=== PATIENT | female | born 1960 | race Two or more races ===

== ENCOUNTER 2018-04-30 00:34 | Inpatient (IN) | payer OTHER ==
[2018-04-30] MEDS ORDERED: morphine CARPU-JECT 10 MG/1 ML DISP.SYRIN IVPUSH ONE ×3 (00:40→05:09)
[2018-04-30] MEDS ORDERED: SODIUM CHLORIDE 0.9% 500 ML INFUS.BAG IV ONE (00:40)
[2018-04-30] MEDS ORDERED: ONDANSETRON 4 MG/2 ML VIAL IVPUSH ONE (00:41)
--- NOTE | 2018-04-30 00:41 | PDOC ---
History of Present Illness - General Chief Complaint: Nausea/Vomiting Stated Complaint: VOMITING AND BACK PAIN History Source: Patient, Family - History of Present Illness Initial Comments: 04/30/18 05:34 back and abd pain x 2 days Timing/Duration: other (2 days) Severity: severe Modifying Factors: improves with: eating, rest Associated Symptoms: reports: nausea/vomiting. denies: fever/chills, rash Past History - Past Medical History Allergies/Adverse Reactions: Allergies Allergy/AdvReac Type Severity Reaction Status Date / Time No Known Allergies Allergy Verified 04/30/18 00:35 Home Medications: Ambulatory Orders Ondansetron [Zofran Odt -] 4 mg SL Q4H PRN 04/30/18 Comment:: 04/30/18 05:35 denies Review of Systems - Review of Systems All Other Systems: Reviewed and Negative *Physical Exam - Physical Exam General Appearance: Yes: Mild Distress HEENT: negative: Scleral Icterus (R), Scleral Icterus (L) Neck: positive: Supple. negative: Lymphadenopathy (R) Respiratory/Chest: positive: Lungs Clear Cardiovascular: positive: Regular Rhythm Gastrointestinal/Abdominal: positive: Tender. negative: Distended Lymphatic: negative: Adenopathy Musculoskeletal: positive: Normal Inspection Extremity: positive: Normal Capillary Refill Integumentary: positive: Normal Color Neurologic: positive: Fully Oriented ED Treatment Course - LABORATORY CBC & Chemistry Diagram: 04/30/18 01:09 04/30/18 01:09 Medical Decision Making - Medical Decision Making 04/30/18 05:36 gallstone pancreatitis low risk by Martita D/lia Gregg of general surgery--admit with supportive mgmt fluids IV morphine antiemetics *DC/Admit/Observation/Transfer Diagnosis at time of Disposition: Acute gallstone pancreatitis - Discharge Dispostion Condition at time of disposition: Good Decision to Admit order: Yes - Referrals - Patient Instructions - Post Discharge Activity
[2018-04-30] MEDS ORDERED: morphine CARPU-JECT 10 MG/1 ML DISP.SYRIN ONE ×3 (00:47→05:23)
[2018-04-30] MEDS ORDERED: ONDANSETRON 4 MG/2 ML VIAL ONE (01:02)
[2018-04-30 02:33] LABS: BASO % 0.1 % (0-2.0); EOS % 0.3 % (0-4.5); HEMATOCRIT 36.8 % (32.4-45.2); HEMOGLOBIN 12.4 GM/dL (10.7-15.3); LYMPH % 8.2 % (8-40); MCH 28.1 pg (25.7-33.7); MCHC 33.8 g/dl (32.0-36.0); MEAN PLT VOLUME 9.1 fl (7.5-11.1); MONO % 4.9 % (3.8-10.2); NEUT % 86.5 % (42.8-82.8); PLATELET COUNT 275 K/MM3 (134-434); RBC 4.43 M/mm3 (3.60-5.2); RDW 13.2 % (11.6-15.6); WHITE BLOOD COUNT 12.9 K/mm3 (4.0-10.0)
[2018-04-30 02:43] LABS: URINE APPEARANCE CLEAR; URINE BILIRUBIN NEGATIVE (<2.0 mg/dL); URINE BLOOD NEGATIVE (NEGATIVE); URINE COLOR YELLOW; URINE GLUCOSE (UA) NEGATIVE (NEGATIVE); URINE KETONE NEGATIVE (NEGATIVE); URINE LEUK ESTERASE NEGATIVE (NEGATIVE); URINE NITRITE NEGATIVE (NEGATIVE); URINE PROTEIN NEGATIVE (NEGATIVE); URINE UROBILINOGEN NORMAL mg/dL (0.2-1.0)
[2018-04-30 03:04] LABS: ALK PHOS 92 U/L (45-117); ANION GAP 11 (8-16); BILIRUBIN,TOTAL 0.5 mg/dL (0.2-1.0); BLOOD UREA NITROGEN 7 mg/dL (7-18); CALCIUM 9.1 mg/dL (8.5-10.1); CHLORIDE 100 mmol/L (98-107); CO2 28 mmol/L (21-32); CREATININE 0.6 mg/dL (0.55-1.02); GLUCOSE,RANDOM 135 mg/dL (74-106); POTASSIUM 3.3 mmol/L (3.5-5.1); SGOT/AST 57 U/L (15-37); SGPT/ALT 33 U/L (12-78); SODIUM 139 mmol/L (136-145); TOT PROT 7.9 g/dl (6.4-8.2)
[2018-04-30 03:06] LABS: LIPASE 1193 U/L (73-393)
[2018-04-30] MEDS ORDERED: ONDANSETRON 4 MG/2 ML VIAL IVPUSH PRN ×2 (05:41→08:14)
[2018-04-30] MEDS ORDERED: SODIUM CHLORIDE 1,000 ML IV SCH (05:45)
--- NOTE | 2018-04-30 08:07 | CONSULT ---
- Consultation REQUESTING PROVIDER: Dyllan ARNDT CONSULT REQUEST: We have been asked to surgically evaluate this patient for ( specify). PCP:Jann Castro NP HISTORY OF PRESENT ILLNESS: 57 y/o female presented w/n/v/and abdominal pain which started # days ago while traveling in [place]; there was some relief and then on return home started again; pain is sharp and unrelenting in the epigastrium/RUQ and radiation to the back; she denies dark urine/light stools; pain is relieved w/morphine in the ED PMHx:none PSHx: none Home Medications Medication Instructions Recorded Ondansetron [Zofran Odt -] 4 mg SL Q4H PRN 04/30/18 Allergies Allergy/AdvReac Type Severity Reaction Status Date / Time No Known Allergies Allergy Verified 04/30/18 00:35 REVIEW OF SYSTEMS: CONSTITUTIONAL: Absent: fever, chills, diaphoresis, generalized weakness, malaise, loss of appetite, weight change CARDIOVASCULAR: Absent: chest pain, syncope, palpitations, irregular heart rate, lightheadedness , peripheral edema RESPIRATORY: Absent: cough, shortness of breath, dyspnea with exertion, wheezing, stridor, hemoptysis GASTROINTESTINAL: Absent: abdominal pain, abdominal distension, nausea, vomiting, diarrhea, constipation, melena, hematochezia GENITOURINARY: Absent: dysuria, frequency, urgency, hesitancy, hematuria, flank pain, genital pain MUSCULOSKELETAL: Absent: myalgia, arthralgia, joint swelling, back pain, neck pain SKIN: Absent: rash, itching, pallor HEMATOLOGIC/IMMUNOLOGIC: Absent: easy bleeding, easy bruising, lymphadenopathy NEUROLOGIC: Absent: headache, focal weakness, paresthesias, dizziness, unsteady gait, seizure, mental status changes, bladder or bowel incontinence PSYCHIATRIC: Absent: anxiety, depression, suicidal or homicidal ideation, hallucinations. PHYSICAL EXAM: GENERAL: Awake, alert, and fully oriented, in slight acute distress. HEAD: Normal with no signs of trauma. EYES: sclera anicteric, conjunctiva clear. NECK: Normal ROM, supple without lymphadenopathy, JVD, or masses. ABDOMEN: Soft, tender in epigastriun and RUQ; +/- Rye sign, not distended, no guarding, no rebound, no masses. No organomegaly. No hernias MUSCULOSKELETAL: Normal ROM at all joints. No bony deformities or tenderness. No CVA tenderness. UPPER EXTREMITIES: 2+ pulses, warm, well-perfused. No cyanosis. Cap refill <2 seconds. No peripheral edema. LOWER EXTREMITIES: 2+ pulses, warm, well-perfused. No calf tenderness. No peripheral edema. NEUROLOGICAL: Normal speech, gait not observed. PSYCH: Cooperative. Good eye contact. Appropriate mood and affect. SKIN: Warm, dry, normal turgor, no rashes or lesions noted. Vital Signs Temperature 98.5 F 04/30/18 00:37 Pulse Rate 84 04/30/18 06:02 Respiratory Rate 18 04/30/18 06:02 Blood Pressure 145/78 04/30/18 05:58 O2 Sat by Pulse Oximetry (%) 99 04/30/18 06:02 Lab Results WBC 12.9 K/mm3 (4.0-10.0) H 04/30/18 01:09 RBC 4.43 M/mm3 (3.60-5.2) 04/30/18 01:09 Hgb 12.4 GM/dL (10.7-15.3) 04/30/18 01:09 Hct 36.8 % (32.4-45.2) 04/30/18 01:09 MCV 83.0 fl (80-96) 04/30/18 01:09 MCHC 33.8 g/dl (32.0-36.0) 04/30/18 01:09 RDW 13.2 % (11.6-15.6) 04/30/18 01:09 Plt Count 275 K/MM3 (134-434) 04/30/18 01:09 Sodium 139 mmol/L (136-145) 04/30/18 01:09 Potassium 3.3 mmol/L (3.5-5.1) L 04/30/18 01:09 Chloride 100 mmol/L (98-107) 04/30/18 01:09 Carbon Dioxide 28 mmol/L (21-32) 04/30/18 01:09 Anion Gap 11 (8-16) 04/30/18 01:09 BUN 7 mg/dL (7-18) 04/30/18 01:09 Creatinine 0.6 mg/dL (0.55-1.02) 04/30/18 01:09 Random Glucose 135 mg/dL (74-106) H 04/30/18 01:09 Calcium 9.1 mg/dL (8.5-10.1) 04/30/18 01:09 CT a/p-acute cholelithiasis; cholecystitis lipase elevated; amylase 116 IMP: acute cholecystitis/cholelithiasis; ? mild pancreatitis ? PLAN: NPO/IVF/IVABS; trend amylase/lipase; will need lap arjun; d/w patient and her daughter Nina this morning Jairo Gregg MD FACS
--- NOTE | 2018-04-30 08:25 | HP ---
CHIEF COMPLAINT: abdominal pain/ nausea/vomiting for 2 days PCP: HISTORY OF PRESENT ILLNESS: Patient is a 57 year old female with a past medical history of hypertension. She presents to the ED for abdominal pain, nausea, vomiting for two days. Patient is unable to hold down any food secondary to nausea, vomiting and abdominal pain. Vomiting is non bloody, non bilious. Abdominal pain began while she was traveling, then eventually worsened when she returned home prompting and ED visit. The pain is sharp and persistent and in the epigastric/ RUQ region. She denies any chest pain or shortness of breath No recent sick contacts or new foods. Her abdomen is mildly distended and tender to touch. Her lipase on admission was elevated at 1193, amylase 116. She was made NPO and started on IVF and antibiotics. A surgical consult was placed. CT abdomen shows distended gallbladder with thickened wall and large calculus. The possibility of acute cholecystitis cannot be excluded. Diffuse fatty infiltration of the liver with no additional evidence of acute pathology within the abdomen or pelvis. ER course was notable for: (1) CT shows possible acute choleysitis (2) lipase/amylase elevated (3) negative troponin Recent Travel: PAST MEDICAL HISTORY: PAST SURGICAL HISTORY: Social History: Smoking: Alcohol: Drugs: Family History: Allergies No Known Allergies Allergy (Verified 04/30/18 00:35) HOME MEDICATIONS: Home Medications Medication Instructions Recorded Ondansetron [Zofran Odt -] 4 mg SL Q4H PRN 04/30/18 PHYSICAL EXAMINATION Vital Signs - 24 hr 04/30/18 04/30/18 04/30/18 00:37 05:58 06:02 Temperature 98.5 F Pulse Rate 72 84 Pulse Rate [ 72 Left Radial] Respiratory 18 18 18 Rate Blood Pressure 168/82 Blood Pressure 145/78 [Left Arm] O2 Sat by Pulse 100 99 99 Oximetry (%) GENERAL: Awake, alert, and fully oriented, in no acute distress. HEAD: Normal with no signs of trauma. EYES: Pupils equal, round and reactive to light, extraocular movements intact, sclera anicteric, conjunctiva clear. No lid lag. EARS, NOSE, THROAT: Ears normal, nares patent, oropharynx clear without exudates. Moist mucous membranes. NECK: Normal range of motion, supple without lymphadenopathy, JVD, or masses. LUNGS: Breath sounds equal, clear to auscultation bilaterally. No wheezes, and no crackles. No accessory muscle use. HEART: Regular rate and rhythm, normal S1 and S2 without murmur, rub or gallop. ABDOMEN: soft, mildly distended, tender to touch, + bowel sounds MUSCULOSKELETAL: Normal range of motion at all joints. No bony deformities or tenderness. No CVA tenderness. UPPER EXTREMITIES: 2+ pulses, warm, well-perfused. No cyanosis. No clubbing. No peripheral edema. LOWER EXTREMITIES: 2+ pulses, warm, well-perfused. No calf tenderness. No peripheral edema. NEUROLOGICAL: Cranial nerves II-XII intact. Normal speech. Normal gait. PSYCHIATRIC: Cooperative. Good eye contact. Appropriate mood and affect. 04/30/18 04/30/18 04/30/18 01:00 01:09 01:09 WBC 12.9 H RBC 4.43 Hgb 12.4 Hct 36.8 MCV 83.0 MCH 28.1 MCHC 33.8 RDW 13.2 Plt Count 275 MPV 9.1 Neutrophils % 86.5 H Lymphocytes % 8.2 Monocytes % 4.9 Eosinophils % 0.3 Basophils % 0.1 Nucleated RBC % 0 Sodium 139 Potassium 3.3 L Chloride 100 Carbon Dioxide 28 Anion Gap 11 BUN 7 Creatinine 0.6 Creat Clearance w eGFR > 60 Random Glucose 135 H Calcium 9.1 Total Bilirubin 0.5 AST 57 H ALT 33 Alkaline Phosphatase 92 Troponin I < 0.02 Total Protein 7.9 Albumin 4.0 Total Amylase Lipase 1193 H Urine Color Urine Appearance Urine pH Ur Specific [place] Urine Protein Urine Glucose (UA) Urine Ketones Urine Blood Urine Nitrite Urine Bilirubin Urine Urobilinogen Ur Leukocyte Esterase 04/30/18 04/30/18 04/30/18 01:09 01:28 01:35 WBC RBC Hgb Hct MCV MCH MCHC RDW Plt Count MPV Neutrophils % Lymphocytes % Monocytes % Eosinophils % Basophils % Nucleated RBC % Sodium Potassium Chloride Carbon Dioxide Anion Gap BUN Creatinine Creat Clearance w eGFR Random Glucose Calcium Total Bilirubin AST ALT Alkaline Phosphatase Troponin I Cancelled Total Protein Albumin Total Amylase 116 H Lipase Urine Color Yellow Urine Appearance Clear Urine pH 6.0 Ur Specific [place] 1.024 Urine Protein Negative Urine Glucose (UA) Negative Urine Ketones Negative Urine Blood Negative Urine Nitrite Negative Urine Bilirubin Negative Urine Urobilinogen Normal Ur Leukocyte Esterase Negative ASSESSMENT/PLAN: Patient is a 57 year old female with a past medical history of hypertension. She presents to the ED for abdominal pain, nausea, vomiting for two days. Patient is unable to hold down any food secondary to nausea, vomiting and abdominal pain. Vomiting is non bloody, non bilious. Abdominal pain began while she was traveling, then eventually worsened when she returned home prompting and ED visit. The pain is sharp and persistent and in the epigastric/ RUQ region. She denies any chest pain or shortness of breath No recent sick contacts or new foods. Her abdomen is mildly distended and tender to touch. Her lipase on admission was elevated at 1193, amylase 116. She was made NPO and started on IVF and antibiotics. A surgical consult was placed. Imaging: abd/ct: abdomen shows distended gallbladder with thickened wall and large calculus. The possibility of acute cholecystitis cannot be excluded. Diffuse fatty infitration of the liver with no additional evidence of acute pathology within the abdomen or pelvis. GI: Abdominal Pain/Nausea/Vomiting Acute cholecystitis Pancreatitis NPO ID consulted for antibiotics D5 NS 20meq Pain management with morphine Protonix 40mg pushes Zofran prn Possible surgery on Wednesday Card; Hypertension Not on home meds F.E.N. Fluids: D5 NS 10meq @ 100 Electro: monitor Nutrition: NPO Prophy: DVT: SCDs GI: Protonix Disposition: full code Visit type - Emergency Visit Emergency Visit: Yes ED Registration Date: 04/30/18 Care time: The patient presented to the Emergency Department on the above date and was hospitalized for further evaluation of their emergent condition. - New Patient This patient is new to me today: Yes Date on this admission: 04/30/18 - Critical Care Critical Care patient: No Hospitalist Screening - Colonoscopy Questionnaire Colonoscopy Questionnaire: Colonoscopy Questionnaire - Patient: 50 - 75 years old and never had a screening colonoscopy: Unknown History of colon or rectal polyps, or CA: Unknown History of IBD, Crohn's disease or UC: Unknown History of abdominal radiation therapy as a child: Unknown - Relative: 1 with colon or rectal CA, or polyps at age 60 or younger: Unknown Colon or rectal CA diagnosed at age 45 or younger: Unknown Multiple relatives with colon or rectal CA: Unknown - Outcome: Screening Result: Negative Screen
[2018-04-30] MEDS: PANTOPRAZOLE SODIUM 40 MG VIAL IVPUSH SCH (09:53)
[2018-04-30] MEDS ORDERED: PIPERACILLIN/TAZOB 3.375 GM 3.375 GM in DEXTROSE 5%-WATER - 50 ML IVPB SCH (10:00)
[2018-04-30] MEDS: PIPERACILLIN/TAZOB 3.375 GM 3.375 GM in DEXTROSE 5%-WATER - 50 ML IVPB SCH ×2 (10:00→17:46)
--- NOTE | 2018-04-30 10:02 | PN ---
Progress Note (short form) - Note Progress Note: ID Consult dictated Acute cholecystitis Gallstone pancreatitis R/O biliary sepsis Pending c/s empiric Zosyn
--- NOTE | 2018-04-30 10:37 | CONS ---
DATE OF CONSULTATION: DATE OF DICTATION: 04/30/2018 INFECTIOUS DISEASE CONSULTATION HISTORY OF PRESENT ILLNESS: The patient is a 57-year-old female who was evaluated for acute cholecystitis. The patient developed right upper quadrant abdominal pain associated with nausea and vomiting approximately 2 days prior to admission. She described the pain as sharp, localized to the right lower quadrant and radiating to the back. She presented to the hospital, where a CAT scan revealed cholelithiasis, gallbladder thickening consistent with acute cholecystitis. She was empirically treated with Zosyn. At the present time she continues to complain of right upper quadrant abdominal pain as well as nausea. She was seen in consultation by Surgery. PAST MEDICAL HISTORY: As above. ALLERGIES: No known allergies. LABORATORY DATA: White count 12.9, hematocrit 36.8, platelet count 275. BUN 7, creatinine 0.6, amylase 116, lipase 1193. Cultures are pending. PHYSICAL EXAMINATION: General: She is awake, alert, supine in bed, obese female in no acute distress. Vital Signs: Temperature 98.5, blood pressure 168/82, pulse 72 and regular, respirations 18 per minute. HEENT: Sclerae mildly icteric. Cardiac: Heart sounds S1, S2. Lungs: Diminished breath sounds at the bases. Abdomen: Soft. Right upper quadrant tenderness to palpation. No rebound or rigidity. Extremities: Positive for edema. IMPRESSION: 1. Acute cholecystitis. 2. Gallstone pancreatitis. 3. Rule out biliary sepsis. PLAN: Await blood cultures. Empiric antibiotic coverage with Zosyn 3.375 gm IV piggyback every 8 hours, IV fluid hydration, analgesics, surgical followup. Thank you for the kind referral. GABRIELE HOUGH M.D. [id number]
[2018-04-30] MEDS ORDERED: morphine SULFATE 4 MG/ML VIAL ONE ×2 (13:31→17:42)
[2018-04-30] MEDS: morphine CARPU-JECT 4 MG/1 ML DISP.SYRIN IVPUSH PRN ×2 (13:58→17:45)
[2018-04-30] MEDS: morphine CARPU-JECT 2 MG/1 ML DISP.SYRIN IVPUSH PRN (21:53)
[2018-04-30] MEDS ORDERED: KCL 10 MEQ IVPB 10 MEQ/100 ML INFUS.BAG IVPB SCH (22:15)
[2018-04-30] MEDS: POTASSIUM CHLORIDE 10 MEQ in DEXTROSE 5%-NORMAL SALINE 1,000 ML IVPB SCH (22:30)
[2018-05-01] MEDS: PIPERACILLIN/TAZOB 3.375 GM 3.375 GM in DEXTROSE 5%-WATER - 50 ML IVPB SCH ×3 (01:37→17:19)
[2018-05-01] MEDS: POTASSIUM CHLORIDE 10 MEQ in DEXTROSE 5%-NORMAL SALINE 1,000 ML IVPB SCH (02:30)
[2018-05-01] MEDS: morphine CARPU-JECT 2 MG/1 ML DISP.SYRIN IVPUSH PRN (05:14)
--- NOTE | 2018-05-01 09:09 | PN ---
Progress Note (short form) - Note Progress Note: Attending Surgeon Feels better VSS AF abdo-soft and less tender labs pending IMP: cholecystitis/cholelithiasis PLAN: Continue present tx. xfer to [facility] for possible lap arjun possible open pending normalization of amylase/lipase; patient; family and staff are aware. Jairo Gregg MD FACS
[2018-05-01 09:36] LABS: ALK PHOS 66 U/L (32-92); ANION GAP 9 (8-16); BILIRUBIN,TOTAL 0.9 mg/dl (0.2-1.0); BLOOD UREA NITROGEN 6 mg/dl (7-18); CALCIUM 8.3 mg/dl (8.4-10.2); CHLORIDE 100 mmol/L (98-107); CO2 26 mmol/L (22-28); CREATININE 0.6 mg/dl (0.6-1.3); GLUCOSE,RANDOM 114 mg/dl (74-106); MAGNESIUM 1.7 mg/dL (1.8-2.4); SGOT/AST 47 U/L (10-42); SGPT/ALT 22 U/L (10-40); SODIUM 135 mmol/L (136-145)
[2018-05-01 09:41] LABS: RDW 12.4 % (11.6-15.6)
[2018-05-01 09:41] LABS: POTASSIUM 2.9 mmol/L (3.5-5.1)
[2018-05-01 09:51] LABS: HEMATOCRIT 34.6 % (32.4-45.2); HEMOGLOBIN 12.1 GM/dl (10.7-15.3); MCH 29.3 pg (25.7-33.7); MCHC 35.1 g/dl (32.0-36.0); MEAN CELL VOLUME 83.4 fl (80-96); MEAN PLT VOLUME 8.7 fl (7.5-11.1); PLATELET COUNT 250 K/MM3 (134-434); RBC 4.15 M/mm3 (3.60-5.2); WHITE BLOOD COUNT 19.1 K/mm3 (4.0-10.8)
[2018-05-01] MEDS ORDERED: MAGNESIUM 1GM/D5W 100ML - 100 ML IVPB IVPB ONE (09:52)
[2018-05-01 10:11] LABS: CHOLESTEROL 123 mg/dl; HDL CHOLESTEROL 73 mg/dl (29-89)
[2018-05-01 10:16] LABS: LDL CHOLESTEROL (ONLY DFH) 45 mg/dl; TRIGLYCERIDES 27 mg/dl (35-160)
[2018-05-01] MEDS: KCL 10 MEQ IVPB 10 MEQ/100 ML INFUS.BAG IVPB SCH ×3 (10:32→19:00)
[2018-05-01] MEDS: PANTOPRAZOLE SODIUM 40 MG VIAL IVPUSH SCH (10:32)
[2018-05-01 10:35] LABS: LIPASE 128 U/L (73-393)
--- NOTE | 2018-05-01 11:18 | PN ---
Progress Note (short form) - Note Progress Note: Patient is a 57 year old female with a past medical history of hypertension,who presented to the ED for abdominal pain, nausea and vomiting, admitted with cholecystitis/cholelithiasis. Surgery is following,will transfer to transfer to [facility] for possible lap arjun possible open. lab revealed low K/Mg - replaced, will f/u on lab and ekg. will keep pt NPO and will continue on abx. Visit type - Emergency Visit Emergency Visit: Yes ED Registration Date: 04/30/18 Care time: The patient presented to the Emergency Department on the above date and was hospitalized for further evaluation of their emergent condition. - New Patient This patient is new to me today: No - Critical Care Critical Care patient: No
[2018-05-01 11:44] LABS: URINE APPEARANCE CLEAR; URINE BILIRUBIN NEGATIVE (NEGATIVE); URINE BLOOD NEGATIVE (NEGATIVE); URINE COLOR YELLOW; URINE GLUCOSE (UA) NEGATIVE (NEGATIVE); URINE KETONE NEGATIVE (NEGATIVE); URINE PROTEIN NEGATIVE (NEGATIVE)
[2018-05-01 11:45] LABS: EPI CELLS FEW /HPF; URINE BACTERIA RARE /hpf (NEGATIVE); URINE LEUK ESTERASE 1+ (NEGATIVE); URINE NITRITE NEGATIVE (NEGATIVE); URINE RBC 0-2 /hpf (0-3); URINE UROBILINOGEN 0.2 (0.2-1.0)
--- NOTE | 2018-05-01 12:26 | PN ---
Progress Note, Physician History of Present Illness: Awake, alert Supine in bed Reports less abdominal pain + nausea denies vomiting Afebrile BC prelim no growth - Current Medication List Current Medications: Active Medications Piperacillin Sod/Tazobactam (Sod 3.375 gm/ Dextrose) 50 mls @ 100 mls/hr IVPB Q8H-IV EDUARDO; Protocol Last Admin: 05/01/18 09:35 Dose: 100 mls/hr Potassium Chloride 10 meq/ (Dextrose/Sodium Chloride) 1,005 mls @ 100 mls/hr IVPB ASDIR [facility] Last Admin: 05/01/18 02:30 Dose: 100 mls/hr Potassium Chloride (Potassium Chloride 10 Meq Premix Ivpb -) 10 meq in 100 mls @ 100 mls/hr IVPB Q60M [facility] Stop: 05/01/18 13:29 Last Admin: 05/01/18 10:32 Dose: 100 mls/hr Morphine Sulfate (Morphine Injection -) 4 mg IVPUSH Q3H PRN PRN Reason: PAIN LEVEL 6-10 Last Admin: 05/01/18 05:14 Dose: 4 mg Ondansetron HCl (Zofran Injection) 4 mg IVPUSH Q4H PRN PRN Reason: NAUSEA AND/OR VOMITING Last Admin: 04/30/18 13:39 Dose: 4 mg Ondansetron HCl (Zofran Injection) 4 mg IVPUSH Q6H PRN PRN Reason: NAUSEA Pantoprazole Sodium (Protonix Iv) 40 mg IVPUSH DAILY [facility] Last Admin: 05/01/18 10:32 Dose: 40 mg - Objective Vital Signs: Vital Signs Temperature 99.4 F 05/01/18 06:00 Pulse Rate 91 H 05/01/18 06:00 Respiratory Rate 17 05/01/18 10:00 Blood Pressure 119/49 05/01/18 06:00 O2 Sat by Pulse Oximetry (%) 95 05/01/18 09:00 Constitutional: Yes: Obese Cardiovascular: Yes: Regular Rate and Rhythm, S1, S2 Respiratory: Yes: CTA Bilaterally Gastrointestinal: Yes: Normal Bowel Sounds, Soft, Tenderness, Other (+RUQ tenderness to palp) Labs: CBC, BMP 05/01/18 06:45 05/01/18 07:00 Assessment/Plan Acute cholecystitis Gallstone pancreatitis R/O biliary sepsis Await c/s For cholecystectomy Continue empiric zosyn
[2018-05-01 15:13] LABS: BASO % 0.2 % (0-2.0); HEMATOCRIT 35.6 % (32.4-45.2); HEMOGLOBIN 11.9 GM/dL (10.7-15.3); LYMPH % 4.8 % (8-40); MCH 27.5 pg (25.7-33.7); MCHC 33.3 g/dl (32.0-36.0); MEAN CELL VOLUME 82.6 fl (80-96); MEAN PLT VOLUME 8.8 fl (7.5-11.1); MONO % 5.6 % (3.8-10.2); NEUT % 89.4 % (42.8-82.8); PLATELET COUNT 266 K/MM3 (134-434); RBC 4.31 M/mm3 (3.60-5.2); RDW 13.3 % (11.6-15.6); WHITE BLOOD COUNT 18.3 K/mm3 (4.0-10.0)
[2018-05-01] MEDS ORDERED: PT OWN MED DRAWER 7, Y5N ONE ×2 (15:30→16:33)
[2018-05-01] MEDS ORDERED: DEXTROSE 5%-WATER - 50 ML IVPB ONE (16:35)
[2018-05-01] MEDS ORDERED: PIPERACILLIN/TAZOBACTAM 3.375 GM VIAL IVPB ONE (16:35)
[2018-05-01] MEDS ORDERED: morphine SULFATE 4 MG/ML VIAL IVPUSH PRN (17:02)
--- NOTE | 2018-05-01 22:36 | EKG ---
Test Reason : Blood Pressure : / mmHG Vent. Rate : 072 BPM Atrial Rate : 072 BPM P-R Int : 134 ms QRS Dur : 088 ms QT Int : 432 ms P-R-T Axes : 021 052 038 degrees QTc Int : 473 ms NORMAL SINUS RHYTHM NORMAL ECG NO PREVIOUS ECGS AVAILABLE Confirmed by ANGELIQUE BHAGAT MD ([id number]) on 05/01/2018 10:36:26 PM Referred By: [facility] Confirmed By:ANGELIQUE BHAGAT MD
[2018-05-02] MEDS ORDERED: PIPERACILLIN/TAZOBACTAM 3.375 GM VIAL IVPB ONE ×4 (01:45→23:31)
[2018-05-02] MEDS ORDERED: DEXTROSE 5%-WATER - 50 ML IVPB ONE ×4 (01:45→23:32)
[2018-05-02] MEDS: POTASSIUM CHLORIDE 10 MEQ in DEXTROSE 5%-NORMAL SALINE 1,000 ML IVPB SCH ×3 (01:56→22:04)
[2018-05-02] MEDS: PIPERACILLIN/TAZOB 3.375 GM 3.375 GM in DEXTROSE 5%-WATER - 50 ML IVPB SCH ×2 (01:56→18:01)
[2018-05-02] MEDS ORDERED: ONDANSETRON 4 MG/2 ML VIAL IVPUSH PRN ×2 (07:32→17:17)
--- NOTE | 2018-05-02 08:15 | PN ---
Progress Note, Physician Chief Complaint: CAMRON Torres continues Feels well - Current Medication List Current Medications: Active Medications Potassium Chloride 10 meq/ (Dextrose/Sodium Chloride) 1,005 mls @ 100 mls/hr IVPB ASDIR EDUARDO Piperacillin Sod/Tazobactam (Sod 3.375 gm/ Dextrose) 50 mls @ 100 mls/hr IVPB Q8H-IV EDUARDO; Protocol Morphine Sulfate (Morphine Sulfate) 4 mg IVPUSH Q3H PRN PRN Reason: PAIN LEVEL 6-10 Last Admin: 05/01/18 17:14 Dose: 4 mg Ondansetron HCl (Zofran Injection) 4 mg IVPUSH Q6H PRN PRN Reason: NAUSEA Pantoprazole Sodium (Protonix Iv) 40 mg IVPUSH DAILY EDUARDO - Objective Vital Signs: Vital Signs Temperature 99.2 F 05/02/18 05:49 Pulse Rate 92 H 05/02/18 05:49 Respiratory Rate 18 05/02/18 05:49 Blood Pressure 96/65 05/02/18 05:49 O2 Sat by Pulse Oximetry (%) 95 05/01/18 21:00 Constitutional: Yes: Well Nourished, No Distress Neck: Yes: WNL, Supple Cardiovascular: Yes: Regular Rate and Rhythm, S1, S2. No: Murmur Respiratory: Yes: WNL, Regular, CTA Bilaterally. No: Rales, Rhonchi Gastrointestinal: Yes: WNL, Normal Bowel Sounds, Soft, Other (RUQ tenderness) Edema: No Labs: CBC, BMP 05/01/18 14:25 05/01/18 07:00 Assessment/Plan Microbiology 04/30/18 10:20 Blood - Peripheral Venous Blood Culture - Preliminary NO GROWTH OBTAINED AFTER 24 HOURS, INCUBATION TO CONTINUE FOR 4 DAYS. 04/30/18 10:19 Blood - Peripheral Venous Blood Culture - Preliminary NO GROWTH OBTAINED AFTER 24 HOURS, INCUBATION TO CONTINUE FOR 4 DAYS. Laboratory Tests 05/01/18 05/01/18 07:00 14:25 WBC 18.3 H D Hgb 11.9 Hct 35.6 Plt Count 266 Total Bilirubin 0.9 AST 47 H ALT 22 Assessment Acute cholecystitis stable on antibiotic Plan Discussed with surgical team this am Plan is to go to OR cholecstectomy Arcadio ARNDT
[2018-05-02 08:49] LABS: BASO % 0.4 % (0-2.0); EOS % 0.2 % (0-4.5); HEMATOCRIT 34.6 % (32.4-45.2); HEMOGLOBIN 11.7 GM/dL (10.7-15.3); LYMPH % 10.8 % (8-40); MCHC 33.8 g/dl (32.0-36.0); MEAN CELL VOLUME 82.9 fl (80-96); MEAN PLT VOLUME 8.3 fl (7.5-11.1); MONO % 5.5 % (3.8-10.2); NEUT % 83.1 % (42.8-82.8); PLATELET COUNT 278 K/MM3 (134-434); RBC 4.17 M/mm3 (3.60-5.2); WHITE BLOOD COUNT 13.3 K/mm3 (4.0-10.0)
[2018-05-02 09:00] LABS: INR 1.18 (0.82-1.09); PROTHROMBIN TIME (PATIENT) 13.3 SEC (9.7-13.0)
[2018-05-02 09:12] LABS: CHLORIDE 103 mmol/L (98-107); POTASSIUM 3.1 mmol/L (3.5-5.1); SODIUM 141 mmol/L (136-145)
[2018-05-02 09:18] LABS: ALBUMIN 2.7 g/dl (3.4-5.0); ALK PHOS 110 U/L (45-117); ANION GAP 7 (8-16); BILIRUBIN,TOTAL 0.7 mg/dL (0.2-1.0); BLOOD UREA NITROGEN 6 mg/dL (7-18); CO2 31 mmol/L (21-32); CREATININE 0.6 mg/dL (0.55-1.02); GLUCOSE,RANDOM 95 mg/dL (74-106); SGOT/AST 45 U/L (15-37); SGPT/ALT 27 U/L (12-78); TOT PROT 6.1 g/dl (6.4-8.2)
[2018-05-02] MEDS ORDERED: POTASSIUM CHLORIDE 10 MEQ in DEXTROSE 5%-NORMAL SALINE 1,000 ML IVPB SCH (10:00)
[2018-05-02] MEDS ORDERED: PIPERACILLIN/TAZOB 3.375 GM 3.375 GM in DEXTROSE 5%-WATER - 50 ML IVPB SCH (10:00)
[2018-05-02] MEDS ORDERED: PANTOPRAZOLE SODIUM 40 MG VIAL IVPUSH SCH (10:00)
[2018-05-02] MEDS ORDERED: POTASSIUM CHLORIDE TABS 20 MEQ TABLET.ER (FP) PO ONE (11:45)
[2018-05-02] MEDS: POTASSIUM CHLORIDE 10 MEQ in SODIUM CHLORIDE 100 ML IVPB SCH ×2 (11:53→17:48)
[2018-05-02 12:23] VITALS: BMI 33.1
[2018-05-02] MEDS ORDERED: fentaNYL CITRATE 250 MCG/5 ML VIAL ONE (12:56)
[2018-05-02] MEDS ORDERED: DEXAMETHASONE SOD PHOSPHATE 4 MG/1 ML VIAL ONE (12:56)
[2018-05-02] MEDS ORDERED: MIDAZOLAM HCL 2 MG/2 ML SINGLE DOSE VIAL ONE (12:56)
[2018-05-02] MEDS ORDERED: ROCURONIUM BROMIDE 50 MG/5 ML VIAL ONE ×2 (12:56→15:09)
[2018-05-02] MEDS ORDERED: PROPOFOL 20 ML ONE (12:56)
[2018-05-02] MEDS ORDERED: LIDOCAINE HCL/PF 2% SDV 5ML VIAL ONE (12:56)
[2018-05-02] MEDS ORDERED: DESFLURANE GAS 240 ML BOTTLE IH ONE (13:00)
[2018-05-02] MEDS ORDERED: BUPIVACAINE HCL/PF 0.25% (2.5MG/ML) 10 ML VIAL ONE (13:18)
[2018-05-02] MEDS ORDERED: BUPIVACAINE HCL/PF 0.25% (2.5MG/ML) 10 ML VIAL IJ ONE (16:16)
[2018-05-02] MEDS ORDERED: NEOSTIGMINE METHYLSULFATE 0.5 MG/ML - 10 ML MDV ONE (16:22)
--- NOTE | 2018-05-02 16:45 | OP ---
Operative Note - Note: Operative Date: 05/02/18 Pre-Operative Diagnosis: acute cholecystitis Operation: Laproscopic cholecystitis Post-Operative Diagnosis: Same as Pre-op Surgeon: Jairo Gregg Floor Assembler: Andrés De La Cruz Anesthesia: General Estimated Blood Loss (mls): 50 Drains & Tubes with Location: RLQ LEVON drain Fluid Volume Replaced (mls): 1,200 Operative Report Dictated: Yes
--- NOTE | 2018-05-02 16:46 | SURG ---
Surgery Four Horse Hitch Driver Note Four Horse Hitch Driver: Andrés De La Cruz PA-C Date of Service: 05/02/18 Diagnosis: acute cholecystitis Procedure: Laproscopic cholecystectomy I was present for the entirety of the operative procedure. For further detail, please refer to operative report.
[2018-05-02] MEDS ORDERED: ACETAMINOPHEN 1000 MG/100 ML VIAL (NON FORMULARY) IVPB ONE (16:50)
[2018-05-02] MEDS ORDERED: ACETAMINOPHEN INJECTION 100 ML IVPB ONE (16:50)
[2018-05-02] MEDS: morphine SULFATE 4 MG/ML VIAL IVPUSH PRN (18:22)
--- NOTE | 2018-05-02 20:08 | PN ---
Physical Exam: SUBJECTIVE: Patient seen and examined at bedside, back from OR, eating soup. Feels much better than pre-surgery. Mild pain RUQ. OBJECTIVE: Vital Signs Period Temp Pulse Resp BP Sys/Acharya Pulse Ox Last 24 Hr 97.9 F-99.2 F 86-98 14-22 96-131/52-65 93-96 GENERAL: The patient is awake, alert, and fully oriented, in no acute distress. LUNGS: Breath sounds equal, clear to auscultation bilaterally, no wheezes, no crackles, no accessory muscle use. HEART: Regular rate and rhythm, S1, S2 ABDOMEN: Soft, diffusely tender, multiple trochanter sites covered with bandaids with minimal sanguinous strikethrough; LEVON drain with ~50cc's serosanguinous drainage EXTREMITIES: 2+ pulses, warm, well-perfused, no edema. NEUROLOGICAL: Cranial nerves II through XII grossly intact. Normal speech, gait not observed. Laboratory Results - last 24 hr 05/01/18 05/02/18 05/02/18 21:56 05:29 08:20 WBC 13.3 H RBC 4.17 Hgb 11.7 Hct 34.6 MCV 82.9 MCH 28.0 MCHC 33.8 RDW 13.0 Plt Count 278 MPV 8.3 Neutrophils % 83.1 H Lymphocytes % 10.8 D Monocytes % 5.5 Eosinophils % 0.2 D Basophils % 0.4 Nucleated RBC % 0 PT with INR INR Sodium Potassium Chloride Carbon Dioxide Anion Gap BUN Creatinine Creat Clearance w eGFR POC Glucometer 84 106 Random Glucose Calcium Total Bilirubin AST ALT Alkaline Phosphatase Total Protein Albumin 05/02/18 05/02/18 05/02/18 08:20 08:20 11:47 WBC RBC Hgb Hct MCV MCH MCHC RDW Plt Count MPV Neutrophils % Lymphocytes % Monocytes % Eosinophils % Basophils % Nucleated RBC % PT with INR 13.30 H INR 1.18 H Sodium 141 Potassium 3.1 L Chloride 103 Carbon Dioxide 31 Anion Gap 7 L BUN 6 L Creatinine 0.6 Creat Clearance w eGFR > 60 POC Glucometer 94 Random Glucose 95 Calcium 8.0 L Total Bilirubin 0.7 D AST 45 H ALT 27 Alkaline Phosphatase 110 Total Protein 6.1 L Albumin 2.7 L 05/02/18 18:14 WBC RBC Hgb Hct MCV MCH MCHC RDW Plt Count MPV Neutrophils % Lymphocytes % Monocytes % Eosinophils % Basophils % Nucleated RBC % PT with INR INR Sodium Potassium Chloride Carbon Dioxide Anion Gap BUN Creatinine Creat Clearance w eGFR POC Glucometer 136 Random Glucose Calcium Total Bilirubin AST ALT Alkaline Phosphatase Total Protein Albumin Active Medications Generic Name Dose Route Start Last Admin Trade Name Freq PRN Reason Stop Dose Admin Potassium Chloride 10 meq/ 1,005 mls @ 100 mls/hr 05/02/18 20:00 05/02/18 18: 00 Dextrose/Sodium Chloride IVPB 100 mls/hr Q10H EDUARDO Administration Piperacillin Sod/Tazobactam 50 mls @ 100 mls/hr 05/02/18 18:00 05/02/18 18:01 Sod 3.375 gm/ Dextrose IVPB 100 mls/hr Q8H-IV EDUARDO Administration Protocol Morphine Sulfate 4 mg 05/02/18 17:17 05/02/18 18:22 Morphine Sulfate IVPUSH 4 mg Q3H PRN Administration PAIN LEVEL 6-10 Ondansetron HCl 4 mg 05/02/18 17:17 Zofran Injection IVPUSH Q6H PRN NAUSEA Pantoprazole Sodium 40 mg 05/03/18 10:00 Protonix Iv IVPUSH DAILY EDUARDO ASSESSMENT/PLAN 57 year-old female with a PMH significant for HTN admiatted for acute cholecystitis, cholelithiasis, and gallstone pancreatitis. Cholecystitis Cholelithiasis --s/p lap arjun earlier today, large calculus visualized --monitor LEVON drain output --pain well-managed --afebrile, WBC trending down but still elevated; continue Zosyn Acute gallstone pancreatitis --initial lipase 1193, quickly normalized --AST mildly elevated --continue IV fluids Hypokalemia --repleted with PO and IV FEN Fluids: D5NS+10K@100mL/hr Electrolytes: replete as indicated Nutrition: clears DVT prophylaxis: continue to hold chemical prophylaxis for 24 hours post surgery ; oob; ambulation Dispo: continues to require inpatient care. Full code. Visit type - Emergency Visit Emergency Visit: Yes ED Registration Date: 04/30/18 Care time: The patient presented to the Emergency Department on the above date and was hospitalized for further evaluation of their emergent condition. - New Patient This patient is new to me today: Yes Date on this admission: 05/02/18 - Critical Care Critical Care patient: No
[2018-05-03] MEDS: PIPERACILLIN/TAZOB 3.375 GM 3.375 GM in DEXTROSE 5%-WATER - 50 ML IVPB SCH ×3 (01:23→17:21)
[2018-05-03] MEDS: POTASSIUM CHLORIDE 10 MEQ in DEXTROSE 5%-NORMAL SALINE 1,000 ML IVPB SCH (06:00)
--- NOTE | 2018-05-03 09:06 | PN ---
Progress Note (short form) - Note Progress Note: Anesthesia postop note 57 y/o F s/p GA for Laparoscopic cholecystectomy POD#1, vss, aaox3, no complaints. No anesthesia complications.
[2018-05-03] MEDS ORDERED: PIPERACILLIN/TAZOBACTAM 3.375 GM VIAL IVPB ONE ×4 (09:13→23:38)
[2018-05-03] MEDS ORDERED: DEXTROSE 5%-WATER - 50 ML IVPB ONE ×3 (09:14→23:38)
[2018-05-03] MEDS ORDERED: PT OWN MED DRAWER 7, Y5N ONE (09:16)
[2018-05-03 09:46] LABS: BASO % 0.3 % (0-2.0); HEMATOCRIT 32.7 % (32.4-45.2); HEMOGLOBIN 10.9 GM/dL (10.7-15.3); LYMPH % 4.4 % (8-40); MCH 27.7 pg (25.7-33.7); MCHC 33.3 g/dl (32.0-36.0); MEAN CELL VOLUME 83.1 fl (80-96); MEAN PLT VOLUME 8.6 fl (7.5-11.1); MONO % 4.8 % (3.8-10.2); NEUT % 90.5 % (42.8-82.8); PLATELET COUNT 318 K/MM3 (134-434); RBC 3.93 M/mm3 (3.60-5.2); RDW 13.5 % (11.6-15.6); WHITE BLOOD COUNT 12.6 K/mm3 (4.0-10.0)
[2018-05-03] MEDS ORDERED: PANTOPRAZOLE SODIUM 40 MG VIAL IVPUSH SCH (10:00)
--- NOTE | 2018-05-03 10:15 | PN ---
Progress Note (short form) - Note Progress Note: 57yo F s/p lap arjun for cholecystitis POD 1, pt seen sitting in bed. Pt abd pain much improved, only complaining of mild RUQ pain. Denies n/v, fever, chills. Tolerating PO and ambulating well. Last Vital Signs Temp Pulse Resp BP Pulse Ox 98.2 F 76 20 119/55 96 05/03/18 06:52 05/03/18 06:52 05/03/18 06:52 05/03/18 06:52 05/02/18 21:00 CBC, BMP 05/03/18 09:05 PE: Gen: A&O x3 Resp: breathing comfortably ABd: soft, nondistended, mild RUQ tenderness, incisions clean with no erythema or discharge. RLQ Drain output: 140ml serosanguinous drain Problem List - Problems (1) Cholecystitis, acute with cholelithiasis Code(s): K80.00 - CALCULUS OF GALLBLADDER W ACUTE CHOLECYST W/O OBSTRUCTION
--- NOTE | 2018-05-03 12:52 | PN ---
Progress Note, Physician History of Present Illness: POD #1 lap arjun Awake, alert Supine in bed No c/o abdominal pain On regular diet Afebrile BC prelim no growth - Current Medication List Current Medications: Active Medications Potassium Chloride 10 meq/ (Dextrose/Sodium Chloride) 1,005 mls @ 100 mls/hr IVPB Q10H EDUARDO Last Admin: 05/03/18 06:00 Dose: 100 mls/hr Piperacillin Sod/Tazobactam (Sod 3.375 gm/ Dextrose) 50 mls @ 100 mls/hr IVPB Q8H-IV EDUARDO; Protocol Last Admin: 05/03/18 09:56 Dose: 100 mls/hr Morphine Sulfate (Morphine Sulfate) 4 mg IVPUSH Q3H PRN PRN Reason: PAIN LEVEL 6-10 Last Admin: 05/02/18 18:22 Dose: 4 mg Ondansetron HCl (Zofran Injection) 4 mg IVPUSH Q6H PRN PRN Reason: NAUSEA Pantoprazole Sodium (Protonix Iv) 40 mg IVPUSH DAILY [facility] Last Admin: 05/03/18 09:57 Dose: 40 mg - Objective Vital Signs: Vital Signs Temperature 98.5 F 05/03/18 10:00 Pulse Rate 87 05/03/18 10:00 Respiratory Rate 16 05/03/18 10:00 Blood Pressure 137/74 05/03/18 10:00 O2 Sat by Pulse Oximetry (%) 98 05/03/18 09:00 Constitutional: Yes: No Distress, Obese Eyes: Yes: Conjunctiva Clear Cardiovascular: Yes: Regular Rate and Rhythm, S1, S2 Respiratory: Yes: Diminished Gastrointestinal: Yes: Normal Bowel Sounds, Soft, Abdomen, Obese, Other ( Serosanguinous fluid in LEVON drain). No: Tenderness Extremities: No: Calf Tenderness Labs: CBC, BMP 05/03/18 09:05 INR, PTT INR 1.18 (0.82-1.09) H 05/02/18 08:20 Assessment/Plan POD #1 laparoscopic cholecystectomy Operative findings discussed with surgeon Continue empiric zosyn
[2018-05-03 13:12] LABS: CHLORIDE 107 mmol/L (98-107); POTASSIUM 3.5 mmol/L (3.5-5.1); SODIUM 141 mmol/L (136-145)
[2018-05-03 13:20] LABS: ANION GAP 9 (8-16); BLOOD UREA NITROGEN 6 mg/dL (7-18); CALCIUM 8.2 mg/dL (8.5-10.1); CO2 25 mmol/L (21-32); CREATININE 0.5 mg/dL (0.55-1.02); GLUCOSE,RANDOM 109 mg/dL (74-106)
[2018-05-03] MEDS: morphine SULFATE 4 MG/ML VIAL IVPUSH PRN (13:22)
[2018-05-03] MEDS ORDERED: ONDANSETRON *ODT* 4 MG TABLET SL PRN (13:33)
[2018-05-03] MEDS ORDERED: oxyCODONE HCL 5 MG TABLET PO PRN (13:33)
[2018-05-03] MEDS ORDERED: POTASSIUM CHLORIDE TABS 20 MEQ TABLET.ER (FP) PO ONE (13:34)
--- NOTE | 2018-05-03 13:35 | PN ---
Physical Exam: SUBJECTIVE: Patient seen and examined at bedside. Minimal pain in RUQ. Tolerating PO. Has been walking in the hallway. OBJECTIVE: Vital Signs Period Temp Pulse Resp BP Sys/Acharya Pulse Ox Last 24 Hr 98.2 F-99.0 F 76-98 14-22 105-137/53-77 93-98 GENERAL: The patient is awake, alert, and fully oriented, in no acute distress. LUNGS: Breath sounds equal, clear to auscultation bilaterally, no wheezes, no crackles, no accessory muscle use. HEART: Regular rate and rhythm, S1, S2 ABDOMEN: Soft, diffusely tender, multiple trochanter sites covered with bandaids with minimal sanguinous strikethrough; LEVON drain with ~140cc's serosanguinous drainage EXTREMITIES: 2+ pulses, warm, well-perfused, no edema. NEUROLOGICAL: Cranial nerves II through XII grossly intact. Normal speech, gait not observed. Laboratory Results - last 24 hr 05/02/18 05/02/18 05/03/18 18:14 21:26 05:37 WBC RBC Hgb Hct MCV MCH MCHC RDW Plt Count MPV Absolute Neuts (auto) Neutrophils % Lymphocytes % Monocytes % Eosinophils % Basophils % Nucleated RBC % Sodium Potassium Chloride Carbon Dioxide Anion Gap BUN Creatinine POC Glucometer 136 232 178 Random Glucose Calcium 05/03/18 05/03/18 09:05 09:05 WBC 12.6 H RBC 3.93 Hgb 10.9 Hct 32.7 MCV 83.1 MCH 27.7 MCHC 33.3 RDW 13.5 Plt Count 318 MPV 8.6 Absolute Neuts (auto) 11.4 Neutrophils % 90.5 H Lymphocytes % 4.4 L D Monocytes % 4.8 Eosinophils % 0.0 D Basophils % 0.3 Nucleated RBC % 0 Sodium 141 Potassium 3.5 Chloride 107 Carbon Dioxide 25 Anion Gap 9 BUN 6 L Creatinine 0.5 L POC Glucometer Random Glucose 109 H Calcium 8.2 L Active Medications Generic Name Dose Route Start Last Admin Trade Name Freq PRN Reason Stop Dose Admin Potassium Chloride 10 meq/ 1,005 mls @ 100 mls/hr 05/02/18 20:00 05/03/18 06: 00 Dextrose/Sodium Chloride IVPB 100 mls/hr Q10H EDUARDO Administration Piperacillin Sod/Tazobactam 50 mls @ 100 mls/hr 05/02/18 18:00 05/03/18 09:56 Sod 3.375 gm/ Dextrose IVPB 100 mls/hr Q8H-IV EDUARDO Administration Protocol Morphine Sulfate 4 mg 05/02/18 17:17 05/03/18 13:22 Morphine Sulfate IVPUSH 4 mg Q3H PRN Administration PAIN LEVEL 6-10 Ondansetron HCl 4 mg 05/02/18 17:17 Zofran Injection IVPUSH Q6H PRN NAUSEA Pantoprazole Sodium 40 mg 05/03/18 10:00 05/03/18 09:57 Protonix Iv IVPUSH 40 mg DAILY EDUARDO Administration ASSESSMENT/PLAN: 57 year-old female with a PMH significant for HTN admitted for acute cholecystitis, cholelithiasis, and gallstone pancreatitis. Cholecystitis Cholelithiasis --s/p lap arjun on 6, POD #1 --monitor LEVON drain output --pain well-managed --afebrile, WBC trending down; continue Zosyn (day #2) Acute gallstone pancreatitis --initial lipase 1193, quickly normalized --AST mildly elevated Hypokalemia --repleted with PO FEN Fluids: PO intake adequate Electrolytes: replete as indicated Nutrition: regular diet DVT prophylaxis: LEVON drain still putting out serosanguinous fluid, hold chemical prophylaxis; oob; ambulation Dispo: continues to require inpatient care. Full code. Visit type - Emergency Visit Emergency Visit: Yes ED Registration Date: 04/30/18 Care time: The patient presented to the Emergency Department on the above date and was hospitalized for further evaluation of their emergent condition. - New Patient This patient is new to me today: No - Critical Care Critical Care patient: No
[2018-05-04] MEDS: PIPERACILLIN/TAZOB 3.375 GM 3.375 GM in DEXTROSE 5%-WATER - 50 ML IVPB SCH (02:32)
[2018-05-04 07:36] LABS: BASO % 0.3 % (0-2.0); EOS % 0.8 % (0-4.5); HEMATOCRIT 31.1 % (32.4-45.2); HEMOGLOBIN 10.5 GM/dL (10.7-15.3); LYMPH % 23.3 % (8-40); MCH 28.2 pg (25.7-33.7); MCHC 33.8 g/dl (32.0-36.0); MEAN CELL VOLUME 83.2 fl (80-96); MEAN PLT VOLUME 8.1 fl (7.5-11.1); MONO % 6.5 % (3.8-10.2); NEUT % 69.1 % (42.8-82.8); PLATELET COUNT 330 K/MM3 (134-434); RBC 3.74 M/mm3 (3.60-5.2); RDW 13.2 % (11.6-15.6)
[2018-05-04 07:55] LABS: CHLORIDE 108 mmol/L (98-107); POTASSIUM 3.3 mmol/L (3.5-5.1); SODIUM 143 mmol/L (136-145)
[2018-05-04 08:11] LABS: ALBUMIN 2.6 g/dl (3.4-5.0); ALK PHOS 114 U/L (45-117); ANION GAP 7 (8-16); BILIRUBIN,TOTAL 0.4 mg/dL (0.2-1.0); BLOOD UREA NITROGEN 6 mg/dL (7-18); CALCIUM 8.3 mg/dL (8.5-10.1); CO2 28 mmol/L (21-32); CREATININE 0.5 mg/dL (0.55-1.02); GLUCOSE,RANDOM 75 mg/dL (74-106); SGOT/AST 74 U/L (15-37); SGPT/ALT 61 U/L (12-78); TOT PROT 6.2 g/dl (6.4-8.2)
--- NOTE | 2018-05-04 09:26 | PN ---
Progress Note (short form) - Note Progress Note: POD #2 Alert. Sitting on edge of bed. Tolerating PO diet. OOB and ambulating unassisted. Voiding spontaneously. Denies n/v/f/c, CP or SOB. Last Vital Signs Temp Pulse Resp BP Pulse Ox 98.8 F 74 20 122/68 98 18 07:21 18 07:21 05/04/18 07:21 05/04/18 07:21 05/03/18 21:00 CBC, BMP 05/04/18 06:00 05/04/18 06:00 Hepatic Panel Total Bilirubin 0.4 mg/dL (0.2-1.0) D 05/04/18 06:00 AST 74 U/L (15-37) H 05/04/18 06:00 ALT 61 U/L (12-78) 05/04/18 06:00 Alkaline Phosphatase 114 U/L (45-117) 05/04/18 06:00 Albumin 2.6 g/dl (3.4-5.0) L 05/04/18 06:00 PE Gen: nad Abd: all surgical ports c/d/i. LEVON 30mL serosang. LE: soft. nt bilat Problem List - Problems (1) Cholecystitis, acute with cholelithiasis Assessment/Plan: POD #2 s/p Lap arjun LEVON drain removed on rounds with distal tip intact. Cont oob Diet as tolerated Start PO abx as per ID Potassium 3.3 - replete prn Cleared for discharge home from a surgical standpoint On behalf of Dr. Gregg, thank you for the opportunity to participate in your patient's care. Code(s): K80.00 - CALCULUS OF GALLBLADDER W ACUTE CHOLECYST W/O OBSTRUCTION
--- NOTE | 2018-05-04 09:57 | PN ---
Progress Note, Physician History of Present Illness: POD #2 lap arujn Awake, alert Supine in bed No c/o abdominal pain Tolerating regular diet Afebrile WBC WNL BC no growth - Current Medication List Current Medications: Active Medications Piperacillin Sod/Tazobactam (Sod 3.375 gm/ Dextrose) 50 mls @ 100 mls/hr IVPB Q8H-IV EDUARDO; Protocol Last Admin: 05/04/18 02:32 Dose: 100 mls/hr Ondansetron HCl (Zofran Odt -) 4 mg SL Q6H PRN PRN Reason: NAUSEA AND/OR VOMITING Oxycodone HCl (Roxicodone -) 5 mg PO Q6H PRN PRN Reason: PAIN LEVEL 6-10 - Objective Vital Signs: Vital Signs Temperature 98.8 F 05/04/18 07:21 Pulse Rate 74 05/04/18 07:21 Respiratory Rate 20 05/04/18 07:21 Blood Pressure 122/68 05/04/18 07:21 O2 Sat by Pulse Oximetry (%) 98 05/03/18 21:00 Constitutional: Yes: No Distress, Obese Cardiovascular: Yes: Regular Rate and Rhythm, S1, S2 Respiratory: Yes: CTA Bilaterally Gastrointestinal: Yes: Normal Bowel Sounds, Soft, Abdomen, Obese. No: Tenderness ...Rectal Exam: Yes: Inflammation (drain removed) Edema: No Labs: CBC, BMP 05/04/18 06:00 05/04/18 06:00 INR, PTT INR 1.18 (0.82-1.09) H 05/02/18 08:20 Assessment/Plan POD #2 laparoscopic cholecystectomy Substitute po Augmentin Outpatient follow up
[2018-05-04 13:30] VITALS: BP 139/59; PULSE 79; TEMP 98.5
--- NOTE | 2018-05-04 13:43 | OP ---
DATE OF OPERATION: 05/02/2018 PREOPERATIVE DIAGNOSIS: Acute cholecystitis and cholelithiasis. POSTOPERATIVE DIAGNOSIS: Acute cholecystitis and cholelithiasis. PROCEDURE: Laparoscopic cholecystectomy. SURGEON: Jairo Gregg MD PLAYER DEVELOPMENT MANAGER: Andrés De La Cruz PA-C ANESTHESIA: General. OPERATIVE FINDINGS: There was acute, bordering on gangrenous, cholecystitis and cholelithiasis with marked inflammatory reaction in the right upper quadrant. The rest of the findings are unremarkable. PROCEDURE: The patient was placed on the operating table in the supine position and after the induction of general anesthesia the patient's abdomen was prepped with ChloraPrep and draped in sterile fashion. A timeout was taken and pneumoperitoneum established above the umbilicus using a Veress needle. Once 15 mmHg of pressure were obtained, a 5-mm port was placed at the umbilicus and additional lateral 5-mm ports and a subxiphoid 12-mm port. Laparoscopy was carried out and the previously noted findings were observed. Dissection was begun at the neck of the gallbladder where the peritoneum was opened medially and laterally using blunt dissection and electrocautery. The cystic duct was identified coursing from the neck of the gallbladder towards the common bile duct and it was dissected using blunt dissection proximally and distally for length. Similarly, the artery was identified and dissected proximally and distally for length. A critical view of safety was taken and then the duct and the artery were clipped twice proximally and twice distally with large hemoclips. The duct and artery were then serially divided using Endoshears. Hemostasis was checked for and noted to be good and then the gallbladder was removed from the liver bed in a retrograde fashion using electrocautery. Prior to removal from the edge of the liver, hemostasis in the liver bed was again checked for and noted to be good and then the gallbladder removed from the edge of the liver, placed in an EndoCatch, and brought out through the subxiphoid port. Pneumoperitoneum was reestablished. Copious irrigation was carried out with saline. Hemostasis was verified again. A 10-mm Alfredo-Garcia drain was placed in the right hepatorenal fossa and brought out through 1 of the 5-mm ports and secured to the skin with 2-0 silk suture. All port sites were removed under laparoscopic vision without evidence of bleeding from the port sites. The port sites were infiltrated with 0.5% Marcaine and the skin edges reapproximated with 4-0 Biosyn in a subcuticular continuous fashion. Steri-Strips and Band-Aid dressings were placed. The drain was connected to bulb suction and then the patient aroused from general anesthesia and transferred to the postanesthesia care unit in stable condition, awake and alert. ESTIMATED BLOOD LOSS: 50 mL. REPLACEMENT: Crystalloid. DRAINS: One 10-mm Alfredo-Garcia. SPECIMEN: Gallbladder and contents to Pathology. I, Jairo Gregg, was physically present in the operating room from the time the patient was placed on the operating table until she was transferred to the postanesthesia care unit in [place]. MD CHRISTY Santiago/[id number]
--- NOTE | 2018-05-04 18:39 | PATH ---
Surgical Pathology Report Patient Name: JOSUE WALLS Med. Rec. #: [id number] /Age/Gender: 1960 (Age: 57) / F Account: [id number] Location: [facility] MED/SURG Taken: 05/02/2018 Received: 05/03/2018 Reported: 05/04/2018 Physicians: MD Kalpesh Santiago FNP Specimen(s) Received GALLBLADDER Clinical History Acute cholecystitis Final Diagnosis GALLBLADDER, REMOVAL: ACUTE CHOLECYSTITIS INVOLVING SEROSAL SURFACE WITH FIBRINOUS EXUDATE. CHOLELITHIASIS. Electronically Signed Nicolas Mahmood M.D. Gross Description Received in formalin, labeled "gallbladder," is a 9.0 x 4.0 x 2.2 cm. gallbladder with a 0.2 cm. in length portion of cystic duct attached. The outer surface is preston-brown with multifocal defects and varies from smooth to shaggy. There is no bile or choleliths present within the lumen. There is a 3.5 cm in greatest dimension green-brown, ovoid cholelith separately received within the same container. The mucosa is brown green with a focal gangrenous appearance. The wall of the gallbladder ranges from 0.1-0.7 cm. in thickness. Residential Substance Abuse Counselor sections are submitted in one cassette. 05/03/201805/03/2018
== END 2018-05-04 15:07 | disposition home or self-care (01) | DRG 263 ==
LOC: FER 00:34 → FM/S 06:02 → J8W 05-01 13:09
PROVIDERS: ADMIT Internal Medicine; ATTEND Nurse Practitioner Acute Care
PROC: 0FT44ZZ Resection of Gallbladder, Percutaneous Endoscopic Approach (ICD-10-PCS; principal; 2018-05-02 13:00)
DX: K80.00 Calculus of gallbladder with acute cholecystitis without obstruction (principal); K85.10 Biliary acute pancreatitis without necrosis or infection; K76.0 Fatty (change of) liver, not elsewhere classified; E83.42 Hypomagnesemia; I10 Essential (primary) hypertension; E87.6 Hypokalemia; E66.9 Obesity, unspecified; Z68.33 Body mass index [BMI] 33.0-33.9, adult
CPT/HCPCS: 36415; 74177-TC; 80048; 80053; 80061; 81003; 81015; 82150; 82962; 83036; 83690; 83735; 84484; 85025; 85027; 85610; 86850; 86900; 86901; 87040; 88304-TC; 93005; 94760; 99283-25; J0131; J7030

== ENCOUNTER 2019-11-17 17:03 | Emergency (ER) | payer OTHER ==
[2019-11-17 17:18] VITALS: TEMP 97.9; BMI 28.3
[2019-11-17] MEDS ORDERED: GLUCAGON 1 MG KIT IVPUSH ONE (17:31)
[2019-11-17] MEDS ORDERED: ONDANSETRON 4 MG/2 ML VIAL IVPUSH ONE (17:33)
[2019-11-17] MEDS ORDERED: GLUCAGON 1 MG KIT ONE (17:42)
[2019-11-17] MEDS ORDERED: ONDANSETRON 4 MG/2 ML VIAL ONE (17:42)
[2019-11-17 18:10] VITALS: PULSE 93
[2019-11-17 18:46] VITALS: BP 137/89
--- NOTE | 2019-11-17 19:15 | PDOC ---
Documentation entered by Andrea Benitez SCRIBE, acting as scribe for Tamia Veras MD. Tamia Veras MD: This documentation has been prepared by the Emmanuel bonilla Daniel, SCRIBE, under my direction and personally reviewed by me in its entirety. I confirm that the documentation accurately reflects all work, treatment, procedures, and medical decision making performed by me. History of Present Illness - General Chief Complaint: Foreign Body (FB) Stated Complaint: FOREING BODY STUCK IN THROAT Time Seen by Provider: 11/17/19 17:10 History Source: Patient Exam Limitations: No Limitations - History of Present Illness Initial Comments: 11/17/19 19:13 The patient is a 59 year old female with no past medical history here today for evaluation of food bolus. The patient reports that she was eating a pork chop approximately 30 minutes prior to arrival and felt some of the food get stuck in her throat. She states that she came to the ER due to being unable to swallow her saliva. Patient denies headache, lightheadedness. Denies fever, chills. Denies chest pain, shortness of breath. Denies nausea, vomiting, diarrhea, abdominal pain. Allergies: NKA Surgical history: unknown abdominal surgery Is this a multiple visit Asthma Patient?: No Past History - Past Medical History Allergies/Adverse Reactions: Allergies Allergy/AdvReac Type Severity Reaction Status Date / Time No Known Allergies Allergy Verified 11/17/19 17:04 Home Medications: Ambulatory Orders NK [No Known Home Medication] 11/17/19 Anemia: No COPD: No GI Disorders: Yes (gastritis) - Immunization History Immunization Up to Date: Yes - Psycho Social/Smoking Cessation Hx Smoking History: Never smoked Hx Alcohol Use: No Drug/Substance Use Hx: No Substance Use Type: None Hx Substance Use Treatment: No Review of Systems - Review of Systems Able to Perform ROS?: Yes Comments:: 11/17/19 19:14 GENERAL/CONSTITUTIONAL: No fever or chills. No weakness. HEAD, EYES, EARS, NOSE AND THROAT: +foreign body in throat/upper esophagus. CARDIOVASCULAR: No chest pain or shortness of breath. RESPIRATORY: No cough, wheezing, or hemoptysis. GASTROINTESTINAL: Yes: nausea, unable to tolerate secretions No: vomiting, diarrhea or constipation. GENITOURINARY: No dysuria, frequency, or change in urination. MUSCULOSKELETAL: No joint or muscle swelling or pain. No neck or back pain. SKIN: No rash NEUROLOGIC: No headache, vertigo, loss of consciousness, or change in strength/ sensation. 11/18/19 10:34 *Physical Exam - Vital Signs Last Vital Signs Temp Pulse Resp BP Pulse Ox 97.9 F 108 H 19 160/77 100 11/17/19 17:04 11/17/19 17:04 11/17/19 17:04 11/17/19 17:04 11/17/19 17:04 - Physical Exam 11/17/19 19:14 GENERAL: The patient is in no acute distress, no respiratory distress. HEAD: Normal EYES: PERRLA, EOMI, sclera anicteric, conjunctiva clear. ENT: Ears normal, nares patent, oropharynx clear without exudates. Moist mucous membranes. Spitting out saliva NECK: Normal range of motion, supple LUNGS: Breath sounds equal, clear to auscultation bilaterally. No wheezes, and no crackles. HEART: Regular rate and rhythm, normal S1 and S2 without murmur, rub or gallop. ABDOMEN: Soft, nontender, normoactive bowel sounds. EXTREMITIES: Normal range of motion, no edema. NEUROLOGICAL: Cranial nerves II through XII grossly intact. Normal speech. No focal neurological deficits. MUSCULOSKELETAL: Back non-tender to palpation, no CVA tenderness SKIN: Warm, Dry, normal turgor, no rashes or lesions noted. 11/18/19 10:35 Medical Decision Making - Medical Decision Making 11/17/19 17:33 59 yo F s/p pork chop meal Meat bolus unable to pass Pt drooling No airway compromise, no stridor, no shortness of breath 11/17/19 18:30 Pt given Glucagon and Zofran Pt vomited Large piece of meat regurgitated Pt states she feels better No more drooling Tolerating po Will discharge to home Discharge - Discharge Information Problems reviewed: Yes Clinical Impression/Diagnosis: Food impaction of esophagus Qualifiers: Encounter type: initial encounter Qualified Code(s): T18.128A - Food in esophagus causing other injury, initial encounter Condition: Stable Disposition: HOME - Admission No - Follow up/Referral - Patient Discharge Instructions Patient Printed Discharge Instructions: DI for Removal of Foreign Body From Esophagus Additional Instructions: Ms Geiger Thank you for coming in to the ER today I am so happy that you were able to get the piece of meat out Please follow up with your primary care physician Return to the ER for any other concerns or complaints - Post Discharge Activity Work/Back to School Note: Back to Work - Transfer to Acute Care Facility Transfer Comment: 11/17/19 17:42 Dr. Gouldistar
== END 2019-11-17 18:45 | disposition home or self-care (01) ==
LOC: FER 17:03
PROC: 3E033GC Introduction of Other Therapeutic Substance into Peripheral Vein, Percutaneous Approach (ICD-10-PCS; principal; 2019-11-17)
DX: T18.128A Food in esophagus causing other injury, initial encounter (principal); X58.XXXA Exposure to other specified factors, initial encounter; Y93.89 Activity, other specified; Y92.9 Unspecified place or not applicable
CPT/HCPCS: 99283-25